=== PATIENT | male | born 1940 | race Two or more races ===

== ENCOUNTER 2018-06-29 10:11 | Day surgery (SDC) | payer OTHER ==
[2016-01-28 20:47] VITALS: BMI 31.5
[2018-06-29] MEDS ORDERED: LIDOCAINE 1% 20 ML MDV ID STA (11:20)
[2018-06-29 11:24] VITALS: TEMP 96.8
[2018-06-29] MEDS ORDERED: VERSED ONE (11:49)
[2018-06-29] MEDS ORDERED: DIPRIVAN 20 ML VIAL IVP ONE (11:49)
[2018-06-29 15:34] VITALS: BP 112/67
--- NOTE | 2018-06-30 11:10 | OP ---
PROCEDURE: COLONOSCOPY TO THE CECUM. ENDOSCOPIST: Sejal TRIMBLE M.D. INDICATION: HISTORY OF POLYPS INSTRUMENT: [id number]. MEDICATION: PER ANESTHESIA. PROCEDURE: The patient was positioned for colonoscopy. The digital rectal exam was negative. The colonoscope was inserted through the anus and advanced to the cecum. The cecum was identified using the ileocecal valve and the appendiceal orifice as landmarks. The scope was slowly withdrawn through an adequately prepped colon. [place] Bowel Prep Score equal 9. 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 No other abnormalities were noted. Retroflex was negative. He tolerated the procedure without complication. Withdraw time 5 minutes and 6 seconds. PLAN: 1. Repeat as needed CC: Dr. Carolyn BLUM
== END 2018-06-29 12:45 | disposition home or self-care (01) ==
LOC: SURG 10:11
PROVIDERS: ATTEND Internal Medicine Gastroenterology
DX: Z86.010 Personal history of colon polyps (principal); K57.92 Diverticulitis of intestine, part unspecified, without perforation or abscess without bleeding